=== PATIENT | male | born 1975 | race Hispanic/Latino ===

== ENCOUNTER 2020-04-08 01:53 | Emergency (ER) | payer SELFPAY ==
[2020-04-08] MEDS ORDERED: cloNIDine HCL 0.1 MG TAB PO ONE (02:04)
--- NOTE | 2020-04-08 02:07 | ED.PDOC ---
History of Present Illness - General Chief Complaint: Blood Pressure Problem Stated Complaint: elevated B/P Time Seen by Provider: 04/08/20 02:04 Source: patient Exam Limitations: no limitations - History of Present Illness Initial Comments: The patient is a 44M with a past medical history significant for HTN who presents to the ED complaining of elevated blood pressure. He states that he had previously been on lisinopril daily but has not taken this medication for several months "because my blood pressure was staying good." He also has some clonidine that he uses as needed for elevated blood pressures. He states that he started "feeling funny" this evening "like I just worked out really hard or like my blood pressure was elevated." He denies chest pain, palpitations, shortness of breath or any other specific symptoms. he is unable to completely describe his symptoms aside from "feeling funny." He checked his blood pressure at home and noted it to be elevated and therefore took one dose of his clonidine around two hours ago. He currently feels well. No other complaints at this time. Allergies/Adverse Reactions: Allergies NO KNOWN ALLERGY Allergy (Verified 04/08/20 02:03) Home Medications: Ambulatory Orders Clonidine HCl 0.1 mg PO PRN 04/08/20 Lisinopril 10 mg PO DAILY #30 tab 04/08/20 Review of Systems - Review of Systems Constitutional: Denies: chills, fever, malaise EENTM: Denies: blurred vision, nose congestion Respiratory: Denies: cough, short of breath Cardiology: Denies: chest pain, palpitations, syncope Gastrointestinal/Abdominal: Denies: abdominal pain, diarrhea, nausea, vomiting Musculoskeletal: States: no symptoms reported Skin: States: no symptoms reported Neurological: Denies: headache, numbness, paresthesia, tingling, tremors, weakness Endocrine: States: no symptoms reported Hematologic/Lymphatic: States: no symptoms reported All other Systems: Reviewed and Negative Past Medical History (General) - Patient Medical History Hx Seizures: No Hx Stroke: No Hx Dementia: No Hx Asthma: No Hx of COPD: No Hx Cardiac Disorders: No Hx Congestive Heart Failure: No Hx Pacemaker: No Hx Hypertension: Yes Hx Thyroid Disease: No Hx Diabetes: No Hx Gastroesophageal Reflux: No Hx Renal Disease: No Hx Cancer: No Hx of HIV: No Hx Hepatitis C: No Hx MRSA: No Surgical History: appendectomy - Vaccination History Hx Tetanus, Diphtheria Vaccination: No Hx Influenza Vaccination: Yes - Social History Hx Tobacco Use: No Hx Alcohol Use: Yes Family Medical History - Family History Mother Family History: Unknown Physical Exam - Physical Exam General Appearance: Alert, No apparent distress Ears, Nose, Throat: hearing grossly normal, normal ENT inspection Neck: non-tender, full range of motion Respiratory: normal breath sounds, no respiratory distress, no accessory muscle use, respiratory distress Cardiovascular/Chest: regular rate, rhythm, no edema, no gallop, no murmur Gastrointestinal/Abdominal: normal bowel sounds, non tender, soft Extremity: normal range of motion Neurologic: no motor/sensory deficits, alert, normal mood/affect, oriented x 3 Skin Exam: normal color Progress - Progress Progress: 04/08/20 02:44 Patient reassessed, workup as above. He is feeling better. Will re-start daily lisinopril. Encouraged to maintain home blood pressure log and to follow up with his PCP. Home care instructions and return indications reviewed. - Results/Orders Results/Orders: 04/08/20 02:04 EKG Assessment ONCE 04/08/20 02:15 CARDIAC [employer] Stat EKG STAT Laboratory Results - last 24 hr 04/08/20 04/08/20 04/08/20 02:15 02:15 02:15 WBC 6.5 RBC 5.56 Hgb 15.4 Hct 46.3 MCV 83.2 MCH 27.7 MCHC 33.3 RDW 13.4 Plt Count 222 MPV 7.9 Absolute Neuts (auto) 3.70 Absolute Lymphs (auto) 2.20 Absolute Monos (auto) 0.40 Absolute Eos (auto) 0.20 Absolute Basos (auto) 0.10 Neutrophils % 56.5 Lymphocytes % 33.1 Monocytes % 6.7 Eosinophils % 2.8 Basophils % 0.9 Sodium 136 Potassium 3.3 L Chloride 98 L Carbon Dioxide 28 Anion Gap 13.3 BUN 22 H Creatinine 1.15 BUN/Creatinine Ratio 19.1 Random Glucose 98 Serum Osmolality 275.3 Calcium 9.3 Total Bilirubin 1.2 H AST 114 H ALT 66 H Alkaline Phosphatase 69 Troponin I < 0.02 Serum Total Protein 8.9 H Albumin 4.6 Globulin 4.3 H Albumin/Globulin Ratio 1.1 - EKG/XRAY/CT Comments: NSR @ 82, RBBB no STEMI Departure - Departure Clinical Impression: Essential hypertension Time of Disposition: 02:45 Disposition: Discharge to Home or Self Care Condition: Excellent Departure Forms: ED Discharge - Pt. Copy, Patient Portal Self Enrollment Instructions: DI for High Blood Pressure Diet: resume usual diet Activity: increase activity as tolerated Referrals: Anatoly Jeffries III, MD [Active Staff] - 1-2 Weeks Prescriptions: Lisinopril 10 mg PO DAILY #30 tab Home Medications: Ambulatory Orders Clonidine HCl 0.1 mg PO PRN 04/08/20 Lisinopril 10 mg PO DAILY #30 tab 04/08/20 Additional Instructions: Maintain home blood pressure log. Follow up with your PCP in two weeks for BP check and medication adjustment as needed.
[2020-04-08] MEDS ORDERED: SODIUM CHLORIDE 0.9% 1000ML 2,000 ML IVS ONE (03:08)
[2020-04-08] MEDS ORDERED: SODIUM CHLORIDE 0.9% 1000ML 1,000 ML IVS ONE ×2 (03:12)
[2020-04-08 05:31] VITALS: BP 123/84; TEMP 98.5; O2SAT 99
== END 2020-04-08 05:32 | disposition home or self-care (01) ==
LOC: ER 01:53
DX: I10 Essential (primary) hypertension (principal); I45.10 Unspecified right bundle-branch block
CPT/HCPCS: 80053; 82550; 82553; 84484; 85025; 93005; J7030

== ENCOUNTER 2020-07-26 13:56 | Emergency (ER) | payer OTHER ==
[2020-07-26 14:08] VITALS: O2SAT 97
[2020-07-26] MEDS ORDERED: BACITRACIN 0.9 GM UD PCKT TOP ONE (14:34)
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
[2020-07-26] MEDS ORDERED: NEOMYCIN-BACITRACIN-POLYMYXIN 0.9 GM UD TOP ONE (14:39)
[2020-07-26 14:49] VITALS: BP 148/98; TEMP 98.1
[2020-07-27] MEDS ORDERED: NEOMYCIN-BACITRACIN-POLYMYXIN 0.9 GM UD TOP SCH (09:00)
[2020-07-30] MEDS ORDERED: TETANUS,DIPHTHERIA,PERTUSSIS 1 EA SYG IM ONE (08:55)
== END 2020-07-26 14:49 | disposition home or self-care (01) ==
LOC: ER 13:56
DX: S61.250A Open bite of right index finger without damage to nail, initial encounter (principal); S61.254A Open bite of right ring finger without damage to nail, initial encounter; I10 Essential (primary) hypertension; W54.0XXA Bitten by dog, initial encounter; Z79.899 Other long term (current) drug therapy; Y99.0 Civilian activity done for income or pay; Y92.89 Other specified places as the place of occurrence of the external cause